=== PATIENT | female | born 1990 | race Caucasian/White ===

== ENCOUNTER 2016-11-12 11:28 | Emergency (ER) | payer OTHER ==
[~2016-11-12] VITALS: Ht 170.2 cm; Wt 68.0 kg
[2016-11-12 11:31] VITALS: TEMP 36.8; Ht 170.2 cm; Wt 68.0 kg
[2016-11-12 12:28] LABS: BASO % 0.7 %; BASO ABS # 0.03 K/uL (0-0.2); COMPLETE YES; EOS % 4.6 %; HEMATOCRIT 37.6 % (37-47); LYMPH % 33.6 %; LYMPH ABS # 1.54 K/uL (1.2-3.4); MEAN CELL VOLUME 88.3 fL (80-100); MEAN CORPUSCULAR HEMOGLOBIN 29.6 pg (25-34); MEAN CORPUSCULAR HGB CONC 33.5 g/dl (32-36); MEAN PLATELET VOLUME 12.1 fL (7.4-10.4); MONO % 7.9 %; NEUT % 53.2 %; PLATELET COUNT 150 K/uL (130-400); RED BLOOD COUNT 4.26 M/uL (4.2-5.4); WHITE BLOOD COUNT 4.58 K/uL (4.8-10.8)
--- NOTE | 2016-11-12 12:33 | EMERGENCY ROOM VISIT NOTE ---
ED Visit Note First contact with patient: 11:43 CHIEF COMPLAINT: Vaginal spotting and cramping 1.5 weeks HISTORY OF PRESENT ILLNESS: Patient is an otherwise healthy 26-year-old white female who presents to the emergency department for evaluation of increasing vaginal spotting and cramping over the last 1-1/2 weeks. She has had a copper IUD in place for roughly 6 months. She's had some intermittent spotting and cramping, but not to this degree. She notes that she was last sexually active about a week and a half ago, prior to the onset of the symptoms. She states that digital and vaginal intercourse were a bit aggressive, and she is concerned that the IUD could be misplaced. She did take a home test which was negative. She denies any abnormal vaginal discharge. She notes that the cramping is sporadic, but has become more constant in nature, and she has had some bleeding but the bleeding has become a bit more brisk in the last day and a half. She has not needed to use any medication for her discomfort which she rates a 2/10. Her symptoms are worse when she is more active, and subside when she is able to rest. She does have appointment with her [facility] at home in [place] next week. REVIEW OF SYSTEMS: Review of systems as per HPI. All other systems reviewed were negative. 10 systems reviewed. PMH: Electronic medical records are reviewed and summarized as above/below. See Problem List. SOCIAL HISTORY: Patient lives at home. She is employed by the [employer] in the [email or web address] department. Smokes a quarter pack of cigarettes daily, social EtOH. PHYSICAL EXAM: Vital Signs: Reviewed Nurse's notes. CONSTITUTIONAL: Patient is a pleasant, well-appearing 18-year-old white female who is awake and alert and in no acute distress. NECK: No bruits auscultated. Supple without lymphadenopathy. No thyromegaly. No meningeal signs. Full active range of motion without discomfort. CARDIOVASCULAR: Regular rate and rhythm, with normal S1 and S2, no murmur or gallop or rub is heard. No carotid bruits auscultated. No JVD. Peripheral pulses easily palpable. RESPIRATORY: Breath sounds equal and clear to auscultation without wheezes, rales, or rhonchi heard. Full and equal chest expansion without accessory muscle use or retractions. ABDOMEN: Bowel sounds are present. Abdomen is soft, mildly tender in the suprapubic region, nondistended. No guarding, rebound or rigidity. INTEGUMENTARY: No lesions or rash, normal skin turgor. LYMPH: No lymphadenopathy. EMERGENCY DEPARTMENT COURSE: The patient was seen and assessed as above. She has been having some irregular leading and increased cramping in the setting of a copper IUD. She is primarily concerned about the position of the IUD. IV lock was initiated. CBC with differential, CMP, TSH and urinalysis were drawn. Pelvic ultrasound was performed. Urine test was negative. Urinalysis notes blood, likely contamination from her vaginal bleeding. H&H is normal. Electrolytes are within normal limits. LFTs are normal. TSH is indicative of a euthyroid state. Pelvic ultrasound shows the IUD to be in good position, endometrial stripe is 7 mm in thickness. There are no adnexal lesions noted. All laboratory and diagnostic imaging studies were reviewed with the patient. She was offered pelvic exam, and cultures, however declines, as she has an appointment in 1 week with her established [facility] and would like to wait. She was reassured by the ultrasound findings. Differential diagnoses entertained included , ectopic , dysfunctional uterine bleeding, PID, cervicitis, bacterial vaginosis, ovarian cyst, ovarian torsion, tubo-ovarian abscess, among others. The patient was discharged home in good condition. Medication reconciliation: I attest that I have personally reviewed the patient' s current medication list. Blood pressure screening : Patient was found to have normal blood pressure on screening and does not require follow-up. PELVIC ULTRASOUND, TRANSABDOMINAL AND TRANSVAGINAL HISTORY: EVAL IUD, VAG BLEEDING/CRAMPING COMPARISON: None. FINDINGS: Uterus: 6.6 x 4.5 x 2.7 cm. The uterus is retroflexed. Endometrial stripe: 7 mm in thickness. The intrauterine device is in good position. Right ovary: Normal in size and demonstrates normal color flow. Left ovary: Normal in size and demonstrates normal color flow. Miscellaneous:Small amount of pelvic free fluid. IMPRESSION: 1. The intrauterine device is in good position. 2. Normal ovaries. 3. Small amount of pelvic free fluid. This may be physiologic. Current/Historical Medications No Active Prescriptions or Reported Meds Allergies Coded Allergies: No Known Allergies (Unverified , 11/12/16) Vital Signs Date Time Temp Pulse Resp B/P (MAP) Pulse Ox O2 Delivery O2 Flow Rate FiO2 11/12/16 11:31 36.8 95 16 116/82 100 Room Air Laboratory Results 11/12/16 12:08 Red Blood Count 4.26, Mean Corpuscular Volume 88.3, Mean Corpuscular Hemoglobin 29.6, Mean Corpuscular Hemoglobin Concent 33.5, Mean Platelet Volume 12.1, Neutrophils (%) (Auto) 53.2, Lymphocytes (%) (Auto) 33.6, Monocytes (%) (Auto) 7.9, Eosinophils (%) (Auto) 4.6, Basophils (%) (Auto) 0.7, Neutrophils # (Auto) 2.44, Lymphocytes # (Auto) 1.54, Monocytes # (Auto) 0.36, Eosinophils # (Auto) 0.21, Basophils # (Auto) 0.03 11/12/16 12:08 Test 11/12/16 11:45 11/12/16 12:08 Urine Color YELLOW Urine Appearance CLEAR (CLEAR) Urine pH 5.0 (4.5-7.5) Urine Specific [place] 1.023 (1.000-1.030) Urine Protein TRACE (NEG) Urine Glucose (UA) NEG (NEG) Urine Ketones NEG (NEG) Urine Occult Blood 3+ (NEG) Urine Nitrite NEG (NEG) Urine Bilirubin NEG (NEG) Urine Urobilinogen NEG (NEG) Urine Leukocyte Esterase NEG (NEG) Urine WBC (Auto) 1-5 /hpf (0-5) Urine RBC (Auto) 0-4 /hpf (0-4) Urine Hyaline Casts (Auto) 1-5 /lpf (0-5) Urine Epithelial Cells (Auto) >30 /lpf (0-5) Urine Bacteria (Auto) NEG (NEG) Urine Test NEG (NEG) White Blood Count 4.58 K/uL (4.8-10.8) Red Blood Count 4.26 M/uL (4.2-5.4) Hemoglobin 12.6 g/dL (12.0-16.0) Hematocrit 37.6 % (37-47) Mean Corpuscular Volume 88.3 fL (80-100) Mean Corpuscular Hemoglobin 29.6 pg (25-34) Mean Corpuscular Hemoglobin Concent 33.5 g/dl (32-36) Platelet Count 150 K/uL (130-400) Mean Platelet Volume 12.1 fL (7.4-10.4) Neutrophils (%) (Auto) 53.2 % Lymphocytes (%) (Auto) 33.6 % Monocytes (%) (Auto) 7.9 % Eosinophils (%) (Auto) 4.6 % Basophils (%) (Auto) 0.7 % Neutrophils # (Auto) 2.44 K/uL (1.4-6.5) Lymphocytes # (Auto) 1.54 K/uL (1.2-3.4) Monocytes # (Auto) 0.36 K/uL (0.11-0.59) Eosinophils # (Auto) 0.21 K/uL (0-0.5) Basophils # (Auto) 0.03 K/uL (0-0.2) RDW Standard Deviation 43.4 fL (36.4-46.3) RDW Coefficient of Variation 13.4 % (11.5-14.5) Immature Granulocyte % (Auto) 0.0 % Immature Granulocyte # (Auto) 0.00 K/uL (0.00-0.02) Anion Gap 3.0 mmol/L (3-11) Est Creatinine Clear Calc Drug Dose 91.5 ml/min Estimated GFR () 102.2 Estimated GFR (Non- 88.2 BUN/Creatinine Ratio 13.4 (10-20) Calcium Level 8.5 mg/dl (8.5-10.1) Total Bilirubin 0.3 mg/dl (0.2-1) Aspartate Amino Transf (AST/SGOT) 10 U/L (15-37) Alanine Aminotransferase (ALT/SGPT) 18 U/L (12-78) Alkaline Phosphatase 46 U/L (45-117) Total Protein 6.8 gm/dl (6.4-8.2) Albumin 3.8 gm/dl (3.4-5.0) Globulin 3.0 gm/dl (2.5-4.0) Albumin/Globulin Ratio 1.3 (0.9-2) Thyroid Stimulating Hormone (TSH) 1.170 uIu/ml (0.300-4.500) Departure Information Impression Primary Impression: Abnormal vaginal bleeding Prescriptions No Active Prescriptions or Reported Meds Referrals No Doctor, Assigned (PCP) Patient Instructions My [facility] Additional Instructions Ibuprofen(Motrin, Advil) may be used for fever or pain. Use 600mg every six hours as needed. Take with food. Avoid using more than 2400mg in a 24 hour period. Do not use 2400mg per day for more than three consecutive days without physician direction. Prolonged inappropriate use can lead to stomach upset or ulcers. (AND/OR) Acetaminophen(Tylenol) may be used for fever or pain. Use 1000mg every six hours as needed. Avoid using more than 3000mg in a 24 hour period. Heating pad to the abdomen as needed for pain. Drink plenty of fluids. Diet as tolerated. Follow up with [facility] next week as scheduled. Return to the ED for worsening pain, heavier bleeding (soaking a pad in an hour or less, passing clots larger than your fist), lightheadedness, dizziness, passing out, worsening of your condition or as needed.
[2016-11-12 12:35] LABS: URINE APPEARANCE CLEAR (CLEAR); URINE BILIRUBIN NEG (NEG); URINE COLOR YELLOW; URINE EPITHELIAL CELL AUTO >30 /lpf (0-5); URINE NITRITE NEG (NEG); URINE SPECIFIC GRAVITY 1.023 (1.000-1.030); UROBILINOGEN NEG (NEG)
[2016-11-12 12:41] LABS: MANUAL MICROSCOPIC REQUIRED? NO; REVIEW REQ? NO
[2016-11-12 12:53] LABS: BUN/CREATININE RATIO 13.4 (10-20); CALCIUM 8.5 mg/dl (8.5-10.1); CREATININE 0.89 mg/dl (0.60-1.20); POTASSIUM 3.9 mmol/L (3.5-5.1)
[2016-11-12 12:56] LABS: ALB/GLOB RATIO 1.3 (0.9-2)
[2016-11-12 14:00] VITALS: BP 115/65; PULSE 75; O2SAT 95
--- NOTE | 2016-11-12 14:19 | DIAGNOSTIC IMAGING REPORT ---
PELVIC ULTRASOUND, TRANSABDOMINAL AND TRANSVAGINAL HISTORY: EVAL IUD, VAG BLEEDING/CRAMPING COMPARISON: None. FINDINGS: Uterus: 6.6 x 4.5 x 2.7 cm. The uterus is retroflexed. Endometrial stripe: 7 mm in thickness. The intrauterine device is in good position. Right ovary: Normal in size and demonstrates normal color flow. Left ovary: Normal in size and demonstrates normal color flow. Miscellaneous:Small amount of pelvic free fluid. IMPRESSION: 1. The intrauterine device is in good position. 2. Normal ovaries. 3. Small amount of pelvic free fluid. This may be physiologic. Electronically signed by: Elder Christian M.D. 11/12/2016 2:18 PM Dictated Date/Time: 11/12/2016 2:17 PM
== END 2016-11-12 14:43 | disposition home or self-care (01) ==
LOC: C.EDB 11:32
DX: N93.9 Abnormal uterine and vaginal bleeding, unspecified (principal); Z97.5 Presence of (intrauterine) contraceptive device; F17.210 Nicotine dependence, cigarettes, uncomplicated

== ENCOUNTER → 2017-05-12 | Outpatient (CLI) | payer BC | END | disposition home or self-care (01) | LOC: C.LABSPEC 11:17 | PROVIDERS: ATTEND Physician Assistant | DX: Z11.3 Encounter for screening for infections with a predominantly sexual mode of transmission (principal) ==

== ENCOUNTER 2017-06-25 16:04 | Emergency (ER) | payer BC ==
[~2017-06-25] VITALS: Ht 170.2 cm; Wt 65.0 kg
[2017-06-25 16:24] VITALS: TEMP 36.8; Ht 170.2 cm; Wt 65.0 kg
[2017-06-25 17:12] LABS: BASO % 0.2 %; BASO ABS # 0.02 K/uL (0-0.2); EOS % 1.3 %; EOS ABS # 0.11 K/uL (0-0.5); HEMOGLOBIN 12.9 g/dL (12.0-16.0); IG# 0.01 K/uL (0.00-0.02); LYMPH % 19.8 %; LYMPH ABS # 1.73 K/uL (1.2-3.4); MEAN CELL VOLUME 86.8 fL (80-100); MEAN CORPUSCULAR HEMOGLOBIN 29.5 pg (25-34); MEAN CORPUSCULAR HGB CONC 33.9 g/dl (32-36); MEAN PLATELET VOLUME 11.7 fL (7.4-10.4); MONO % 4.4 %; MONO ABS # 0.38 K/uL (0.11-0.59); NEUT % 74.2 %; NEUT ABS # 6.48 K/uL (1.4-6.5); PLATELET COUNT 169 K/uL (130-400); RED CELL DISTRIBUTION WIDTH CV 12.8 % (11.5-14.5); WHITE BLOOD COUNT 8.73 K/uL (4.8-10.8)
[2017-06-25 17:35] LABS: CALCIUM 8.5 mg/dl (8.5-10.1); CREATININE 0.95 mg/dl (0.60-1.20); POTASSIUM 3.8 mmol/L (3.5-5.1)
[2017-06-25 18:09] VITALS: BP 116/71; PULSE 59; O2SAT 100
--- NOTE | 2017-06-25 19:23 | EMERGENCY ROOM VISIT NOTE ---
History Report prepared by Ming: Vishal Wiley Under the Supervision of: Dr. Mart Patel M.D. First contact with patient: 16:27 Chief Complaint: PAIN (GENERALIZED) Stated Complaint: PINS AND NEEDLES IN FEET/LEGS/HANDS History of Present Illness The patient is a 27 year old female who presents to the Emergency Room with complaints of a numbness sensation in her fingers and toes, that she has been experiencing for the past couple of months. The patient describes the numbness as "pins and needles." There is some loss of sensation along with the numbness, but there has not been any weakness. The symptoms are most commonly present in her fingers and toes, but have also been in her nose and calves on occasion. The patient states that the symptoms were originally intermittent, but are now sometimes constant throughout the day. She notes that if she is not thinking about the symptoms they seem to subside. Getting into the shower causes the symptoms to start, but there is no change in severity with stepping out into the cold. She is currently experiencing the symptoms in her fingers and toes, as well as all the way up to her knees bilaterally. She admittedly has a history of anxiety but she has not been hyperventilating recently. The patient denies any chest pain, shortness of breath, or urinary frequency or burning. Her mother has a history of Raynaud's phenomenon. The patient smokes about 4-5 cigarettes a day. She does not notice any discoloration of her fingers. She does state her fingers and toes are always cold. Source of History: patient Onset: Couple of months Position: finger(s), toe(s) Quality: other (Pins and needles) Timing: constant Modifying Factors (Worsening): other (Warmth, stepping into the shower) Associated Symptoms: No chest pain, No SOB, No urinary symptoms, No weakness Note: Loss of sensation in locations with numbness Review of Systems See HPI for pertinent positives & negatives. A total of 10 systems reviewed and were otherwise negative. Past Medical & Surgical Medical Problems: (1) No Known Active Medical Problems Family History Hypertension Social History Smoking Status: Current Every Day Smoker Alcohol Use: occasionally Marital Status: single Occupation Status: employed Current/Historical Medications No Active Prescriptions or Reported Meds Allergies Coded Allergies: No Known Allergies (Unverified , 11/12/16) Physical Exam Vital Signs Date Time Temp Pulse Resp B/P (MAP) Pulse Ox O2 Delivery O2 Flow Rate FiO2 06/25/17 18:09 59 18 116/71 100 06/25/17 18:02 59 18 116/71 100 Room Air 06/25/17 16:24 36.8 84 16 120/77 100 Room Air Physical Exam Constitutional: Vital signs reviewed. Eyes: Pupils are equal round reactive to light. Conjunctiva are noninjected. ENT: Pharynx is clear without erythema or exudate. Mucous membranes are moist. Neck supple without meningeal signs. Respiratory: Clear to auscultation bilaterally. Breath sounds are equal bilaterally. Cardiovascular: Regular rate and rhythm. No rubs or gallops. GI: Soft, nondistended and nontender. Bowel sounds are present. Musculoskeletal: No peripheral edema. No lower extremity tenderness. Normal peripheral pulses in the arms and legs. Integumentary: No cyanosis. Neurological: The patient is awake and alert. Cranial nerves II-XII are intact. Motor is 5 out of 5 all extremities. Sensation is intact to light touch all extremities. Normal speech. No pronator drift. No limb ataxia. She is able to distinguish between sharp and dull, as well as temperature. Psychiatric: Normal affect. Medical Decision & Procedures Laboratory Results 06/25/17 17:00 Red Blood Count 4.38, Mean Corpuscular Volume 86.8, Mean Corpuscular Hemoglobin 29.5, Mean Corpuscular Hemoglobin Concent 33.9, Mean Platelet Volume 11.7, Neutrophils (%) (Auto) 74.2, Lymphocytes (%) (Auto) 19.8, Monocytes (%) (Auto) 4.4, Eosinophils (%) (Auto) 1.3, Basophils (%) (Auto) 0.2, Neutrophils # (Auto) 6.48, Lymphocytes # (Auto) 1.73, Monocytes # (Auto) 0.38, Eosinophils # (Auto) 0.11, Basophils # (Auto) 0.02 06/25/17 17:00 Test 06/25/17 17:00 White Blood Count 8.73 K/uL (4.8-10.8) Red Blood Count 4.38 M/uL (4.2-5.4) Hemoglobin 12.9 g/dL (12.0-16.0) Hematocrit 38.0 % (37-47) Mean Corpuscular Volume 86.8 fL (80-100) Mean Corpuscular Hemoglobin 29.5 pg (25-34) Mean Corpuscular Hemoglobin Concent 33.9 g/dl (32-36) Platelet Count 169 K/uL (130-400) Mean Platelet Volume 11.7 fL (7.4-10.4) Neutrophils (%) (Auto) 74.2 % Lymphocytes (%) (Auto) 19.8 % Monocytes (%) (Auto) 4.4 % Eosinophils (%) (Auto) 1.3 % Basophils (%) (Auto) 0.2 % Neutrophils # (Auto) 6.48 K/uL (1.4-6.5) Lymphocytes # (Auto) 1.73 K/uL (1.2-3.4) Monocytes # (Auto) 0.38 K/uL (0.11-0.59) Eosinophils # (Auto) 0.11 K/uL (0-0.5) Basophils # (Auto) 0.02 K/uL (0-0.2) RDW Standard Deviation 41.0 fL (36.4-46.3) RDW Coefficient of Variation 12.8 % (11.5-14.5) Immature Granulocyte % (Auto) 0.1 % Immature Granulocyte # (Auto) 0.01 K/uL (0.00-0.02) Anion Gap 5.0 mmol/L (3-11) Est Creatinine Clear Calc Drug Dose 85.0 ml/min Estimated GFR () 93.8 Estimated GFR (Non- 80.9 BUN/Creatinine Ratio 10.2 (10-20) Calcium Level 8.5 mg/dl (8.5-10.1) Thyroid Stimulating Hormone (TSH) 1.280 uIu/ml (0.300-4.500) Free Thyroxine 1.05 ng/dl (0.80-1.60) Laboratory results as reviewed by me. ED Course 1629: The patient was evaluated in room A2. A complete history and physical exam was performed. 1647: I discussed the case with the Lead Systems Architect. She will talk to the patient to expedite the follow-up with a PCP and neurologist. 1655: The Lead Systems Architect has visited with the patient. She already has a PCP in mind that she would like to see. 1800: I discussed domenic's findings with the patient. She will follow-up with PCP and neurologist as er Technologist Infectious Disease assistance. She verbalized agreement of the treatment plan. She states she will quit smoking. The patient was discharged home. Medical Decision This is a 27-year-old female presents with tingling in her fingers, toes and nose. Differential diagnosis includes paresthesias, neuropathy, vasculitis, Raynaud's phenomena, demyelinating disease, electrolyte abnormality. I did perform a limited focused review of portions of the patient's old chart on the electronic medical record. The patient has had no recent pertinent visits to this hospital. I did evaluate the patient as noted above. The patient is presenting with paresthesias for the past 2 months. She does state her mother has Raynaud's syndrome but the patient does not notice any color change to her fingers. She is a smoker and I did advise her to stop smoking. She is neurologically intact at this time. IV access was established. I did order and review the patient's blood work as noted in the electronic medical record. Electrolytes and TFTs are unremarkable. I did discuss the test results with the patient. I did recommend she follow-up with a PCP as well as a neurologist for further testing. credit risk analytics manager did help with referrals and the patient was discharged in good condition. Medication Reconcilliation Current Medication List: was personally reviewed by me Blood Pressure Screening Patient's blood pressure: Normal blood pressure Impression Primary Impression: Paresthesias Scribe Attestation The scribe's documentation has been prepared under my direct and personally reviewed by me in its entirety. I confirm that the note above accurately reflects all work, treatment, procedures, and medical decision making performed by me. Departure Information Dispostion Home / Self-Care Prescriptions No Active Prescriptions or Reported Meds Referrals No Doctor, Assigned (PCP) Forms HOME CARE DOCUMENTATION FORM, IMPORTANT VISIT INFORMATION, WORK / SCHOOL INSTRUCTIONS Patient Instructions My [facility] Additional Instructions You have been examined and treated today on an emergency basis only. This is not a substitute for, or an effort to provide, complete comprehensive medical care. It is impossible to recognize and treat all injuries or illnesses in a single emergency department visit. It is therefore important that you follow up closely with your physician. Call as soon as possible for an appointment. Return for worsening symptoms or if you develop fever, headaches, numbness or weakness on one side of your body, difficulties with your speech or walking, or any other concerning symptoms.
== END 2017-06-25 18:07 | disposition home or self-care (01) ==
LOC: C.EDB 16:04 → C.EDA 18:07
DX: R20.2 Paresthesia of skin (principal); F17.200 Nicotine dependence, unspecified, uncomplicated; Z82.49 Family history of ischemic heart disease and other diseases of the circulatory system